=== PATIENT | female | born 1985 | race African-American/Black ===

== ENCOUNTER 2017-09-27 12:50 | Outpatient (CLI) | payer OTHER ==
--- NOTE | 2017-09-27 17:10 | ULT ---
OBSTETRICAL ULTRASOUND: Date: 09-27-17 History: 32-year-old female undergoing evaluation of anatomy. Technique: Multiplanar grayscale sonographic imaging of the gravid uterus obtained. FINDINGS: Cervical length is approximately 3.1 cm, within normal limits. The placenta is located posteriorly, d emonstrating no evidence of abruption or previa. A single intrauterine gestation is present demonstra ting a breech presentation. stomach, cord insertion, intracranial contents, nose and lips, four chamber heart view, urinary bladder, spine and region of the kidneys appears unremarkable. A four ve ssel cord is noted. biometry: BPD 4.9 cm 20 weeks 5 days HC 19.3 cm 21 weeks 4 days AC 17.9 cm 22 weeks 5 days FL 3.7 cm 21 weeks 5 days Average age based on ultrasound is 21 weeks 5 days. Estimated date of delivery is 02-02-18. Estimated weight is 481 grams, +/- 71 grams. IMPRESSION: Single intrauterine gestation as detailed above. POS: [facility]
== END 2017-09-27 12:51 | disposition home or self-care (01) ==
LOC: ULT 12:50
PROVIDERS: ATTEND Family Medicine
DX: O09.892 Supervision of other high risk pregnancies, second trimester (principal)
CPT/HCPCS: 76805

== ENCOUNTER 2017-10-05 11:23 | Day surgery (SDC) | payer OTHER ==
[2017-10-05 11:59] LABS: #Eosinphils 0.1 thou/uL (0.0-0.7); #Lymphocytes 2.5 thou/uL (1.20-3.40); #Monocytes 0.4 thou/uL (0.11-0.59); #Neutrophils 5.5 thou/uL (1.40-6.50); %Basophils 0.1 % (0.0-1.0); %Eosinophils 0.9 % (0.0-10.0); %Lymphocytes 29.1 % (21.0-51.0); %Monocytes 4.9 % (0.0-10.0); Hematocrit 30.6 % (36.0-47.0); Mean Platelet Volume 7.9 fL (7.4-10.4); Red Blood Cell (RBC) Count 3.95 mill/uL (4.20-5.40); White Blood Cell (WBC) Count 8.5 thou/uL (4.8-10.8)
[2017-10-05 12:01] VITALS: BP 146/91; TEMP 98.3
[2017-10-05 12:02] LABS: Bilirubin Negative (Negative); Blood, Urine Negative (Negative); Glucose, Urine (Dipstick) Negative (Negative); Ketone, Urine Negative (Negative); Nitrite Negative (Negative); Protein, Urine (Dipstick) Negative (Neg-Trace); Urobilinogen 0.2 mg/dL (0.2-1.0)
[2017-10-05 12:03] LABS: Bacteria/HPF Rare-Few HPF (None Seen); Hyaline Casts/LPF 0-3 HYALINE CAST LPF (0-3 Hyaline); RBC/HPF 0-3 HPF (0-3); WBC/HPF None Seen HPF (0-3)
[2017-10-05 12:15] LABS: Hemoglobin A1c 6.3 % (4.0-6.0)
[2017-10-05] MEDS ORDERED: Acetaminophen 500 MG TAB PO SCH (12:15)
[2017-10-05 12:17] LABS: Amphetamine Not Detected (NotDetected); Methadone Not Detected (NotDetected); Methamphetamine Not Detected (NotDetected)
[2017-10-05 12:23] LABS: ALT (SGPT) 29 U/L (8-55); AST (SGOT) 23 U/L (5-34); Alkaline Phosphatase 80 U/L (40-150); Anion Gap 12 mmol/L (10-20); BUN (Urea Nitrogen) 7 mg/dL (7.0-18.7); Bilirubin, Total 0.2 mg/dL (0.2-1.2); Calc. Creatinine Clearance 0 mL/min (70-130); Calcium 8.9 mg/dL (7.8-10.44); Carbon Dioxide 24 mmol/L (22-29); Chloride 104 mmol/L (98-107); Estimated GFR-MDRD Greater than 90; Globulin 3.4 g/dL (2.4-3.5)
--- NOTE | 2017-10-05 19:49 | PRG ---
DATE OF SERVICE: 10/05/2017 PRESENTING COMPLAINT: The patient transferred in from [facility] with elevated blood pressur es and headache. HISTORY OF PRESENT ILLNESS: Ms. Berman is a 32-year-old 2, para 1 at 23 weeks gestation, who sees Dr. Wisdom at [facility]. Antepartum record is not available. The patient relates th at she has diabetes and elevated blood pressure and takes nifedipine 30 p.o. daily as well as Lantus and Levemir. She was noted to have a blood pressure up to 186/76, pulse of 91, repeat blood pressure 164/129 at the retirement this morning. This seems to have been associated with some degree of anxiety an d conflict with cell mates. She denies blurred vision. AUTOMOTIVE PAINTER HELPER HISTORY: x1. Reports development of diabetes after her last and chronic hypert ension. PAST MEDICAL HISTORY: Diabetes and hypertension. PAST SURGICAL HISTORY: Denies. ALLERGIES: Denies. MEDICATIONS: Lantus, Levemir, and nifedipine. The patient reports she supposed to be on baby aspiri n a day, but has not been receiving this in the retirement. SOCIAL HISTORY: Denies. FAMILY HISTORY: Noncontributory. REVIEW OF SYSTEMS: Noncontributory. PHYSICAL EXAMINATION: GENERAL: Black female, in no acute distress. VITAL SIGNS: Initial blood pressure was 140s to 150s; however, with the patient relaxing and p.o. in take, blood pressures have been in the one teens to 120s/70s to 80s. Temperature is 98.6, respiratio ns 18, pulse was 82. HEENT: Within normal limits. LUNGS: Clear to auscultation bilaterally. HEART: Regular rhythm. BREASTS: Without masses bilaterally. ABDOMEN: Soft, nontender. Fundal height 22 cm. FHT is 130s to 140s. PELVIC: Vulva without lesions. Vaginal exam deferred. EXTREMITIES: Without clubbing, cyanosis, or edema. LABORATORY DATA: Revealed normal white count, hematocrit of 31%, normal platelet count. Comp met wa s within normal limits with a normal creatinine. Hemoglobin A1c of 6.3, glucose 109. Liver enzymes within normal limits. Urinalysis revealed negative protein. Protein to creatinine ratio was less th an 0.2 and urine drug screen revealed no abnormalities. IMPRESSION: Chronic hypertension, insulin-dependent diabetes in second trimester without evidence of secondary preeclampsia. PLAN: The patient will be discharged back to the retirement with a prescription for both Tylenol and baby aspirin once a day. The patient to keep scheduled followup with Dr. Wisdom at [facility].
== END 2017-10-05 14:51 ==
LOC: L&D/OP 11:23
PROVIDERS: ATTEND Obstetrics & Gynecology
DX: O10.012 Pre-existing essential hypertension complicating pregnancy, second trimester (principal); O24.112 Pre-existing type 2 diabetes mellitus, in pregnancy, second trimester; E11.9 Type 2 diabetes mellitus without complications; Z79.4 Long term (current) use of insulin; Z3A.23 23 weeks gestation of pregnancy
CPT/HCPCS: 80053; 80306; 81001; 82570; 83036; 84156; 85025; 99283

== ENCOUNTER 2017-10-24 12:54 | Inpatient (IN) | payer OTHER ==
[2017-10-24 13:15] LABS: Bilirubin Negative (Negative); Blood, Urine Negative (Negative); Clarity Clear (Clear); Glucose, Urine (Dipstick) Negative (Negative); Leukocyte Negative (Negative); Nitrite Negative (Negative); Protein, Urine (Dipstick) Negative (Neg-Trace); Specific Gravity, Urine 1.015 (1.005-1.030); Urobilinogen 0.2 mg/dL (0.2-1.0)
[2017-10-24 13:31] LABS: #Basophils 0.1 thou/uL (0.0-0.2); #Eosinphils 0.1 thou/uL (0.0-0.7); #Lymphocytes 2.2 thou/uL (1.20-3.40); #Monocytes 0.5 thou/uL (0.11-0.59); #Neutrophils 6.8 thou/uL (1.40-6.50); %Basophils 0.9 % (0.0-1.0); %Eosinophils 1.1 % (0.0-10.0); %Lymphocytes 22.6 % (21.0-51.0); %Monocytes 4.9 % (0.0-10.0); %Neutrophils 70.5 % (42.0-75.0); Hemoglobin 11.7 g/dL (12.0-16.0); Mean Corpuscular HGB CONC 34.8 g/dL (32.0-36.0); Mean Corpuscular Hemoglobin 26.9 pg (27.0-31.0); Mean Corpuscular Volume 77.3 fl (81.0-99.0); Mean Platelet Volume 7.6 fL (7.4-10.4); Platelet Count 226 thou/uL (130-400); RBC Distribution Width 11.4 % (11.5-14.5); Red Blood Cell (RBC) Count 4.34 mill/uL (4.20-5.40); White Blood Cell (WBC) Count 9.6 thou/uL (4.8-10.8)
[2017-10-24 13:40] LABS: Anion Gap 15 mmol/L (10-20); BUN (Urea Nitrogen) 7 mg/dL (7.0-18.7); Calc. Creatinine Clearance 0 mL/min (70-130); Calcium 9.7 mg/dL (7.8-10.44); Carbon Dioxide 22 mmol/L (22-29); Chloride 105 mmol/L (98-107); Estimated GFR-MDRD Greater than 90; Glucose 125 mg/dL (70-105); Sodium 138 mmol/L (136-145)
[2017-10-24 14:02] VITALS: BMI 31.4
[2017-10-24 15:07] LABS: ALT (SGPT) 35 U/L (8-55); AST (SGOT) 23 U/L (5-34); Albumin 3.5 g/dL (3.5-5.0); Alkaline Phosphatase 122 U/L (40-150); Bilirubin, Direct 0.1 mg/dL (0.1-0.3); Bilirubin, Total 0.3 mg/dL (0.2-1.2); Protein, Total 7.4 g/dL (6.0-8.3)
[2017-10-24] MEDS ORDERED: Acetaminophen 500 MG TAB PO SCH (15:15)
[2017-10-24] MEDS ORDERED: Dextrose 50% Abboject 50 ML SYRINGE SLOW IVP PRN (15:39)
[2017-10-24] MEDS ORDERED: Dextrose 5% in Water 1,000 ML IV PRN (15:39)
[2017-10-24] MEDS ORDERED: Labetalol 100 MG TAB PO SCH ×2 (15:45→21:00)
[2017-10-24] MEDS: Insulin Regular 300 UNITS/3 ML VIAL SC PRN (17:50)
[2017-10-24] MEDS ORDERED: Lidocaine 2% Viscous Solution 20 ML, Aluminum & Magnesium Hydroxide 30 ML, Donnatal Eli... SSW SCH ×3 (18:15)
[2017-10-24] MEDS ORDERED: NIFEdipine XL 30 MG TAB PO SCH (21:00)
[2017-10-24] MEDS ORDERED: NIFEdipine XL 60 MG TAB PO SCH (21:00)
[2017-10-24] MEDS: Acetaminophen 500 MG TAB PO PRN (21:41)
[2017-10-24] MEDS: Insulin Detemir 100 UNITS/ML 20 UNITS in Pre-Filled Syringe 1 EACH SC SCH (21:42)
[2017-10-24] MEDS: diphenhydrAMINE 50 MG/ML VIAL IVP SCH (22:24)
--- NOTE | 2017-10-24 22:57 | ULT ---
OB ULTRASOUND LIMITED: History: Chronic hypertension. Comparison: 09-27-17 Technique: Real-time grayscale and color evaluation of the gravid uterus was performed. FINDINGS: The cervix is closed and measures 4.3 cm in length. Single viable intrauterine with average ultrasound age of 24 weeks 5 days with estimated due date of 02-08-18. Estimated weight is 1 lbs . 11 oz, 10th percentile. The heart rate was documented at 137 beats/minute. Amniotic fluid index is 14.4 cm. The cervical, thoracic and lumbar spine, sacrum, urinary bladder, right and left kidney are all visua lized and appear normal. Placenta is posterior and the position is traverse. BPH 23 weeks 3 days 5.71 cm HC 24 weeks 5 days 22.64 cm AC 25 weeks 1 day 20.52 cm FL 25 weeks 2 days 4.62 cm IMPRESSION: Single viable intrauterine with ultrasound age of 24 weeks 5 days with estimated date of 02-08-18. Estimated weight is 1 lbs. 11 oz, 10th percentile. POS: [facility]
--- NOTE | 2017-10-25 00:36 | HP ---
The patient is a 32-year-old G2, P1 female with an intrauterine at 26 weeks who is seen at [facility] by Dr. Wisdom and has presented to labor and delivery with lower abdominal pain and headaches. The patient's past medical history is complicated, chronic hypertension and diabetes for which she is on medications. She reports that her lower abdominal is sharp and more present with activity and movement. She denies uterine contraction pain. Patient denies back pain, change in di scharge or bleeding, urinary urgency or frequency. She reports that she has been having intermittent headaches and she has been feeling more anxious and having nausea with some vomiting. She reports s he has vomited twice yesterday. The patient denies any fever, reports some baseline shortness of ibeth ath with activity during this and some chest pain that is intermittent that she described a s being all over her chest. The patient denies any rashes, denies diarrhea, constipation, denies hip problems, knee problems, denies vaginal bleeding, leakage of fluid, change in discharge, denies urin kendra urgency or frequency. PAST MEDICAL HISTORY: Gestational diabetes, chronic hypertension. PAST SURGICAL HISTORY: Negative. ALLERGIES: Negative. MEDICATIONS: The patient is on Levemir 20 units twice a day, on regular insulin, sliding scale 3 anna es a day with meals. She is on Procardia 30 mg twice a day, labetalol 100 mg twice a day, 2 baby asp irin a day, Tylenol 3 times a day as needed for pain, vitamins, acid, Zoloft 50 mg fatou ly. SOCIAL HISTORY: The patient reports prior to incarceration, she smoke half pack a day. She has been incarcerated since September at [facility]. REVIEW OF SYSTEMS: Per HPI. PHYSICAL EXAMINATION: VITAL SIGNS: Blood pressures have been in the 150s and 160s systolic, 70s to 100s diastolic, rate in the 80s, respiratory rate 18, temperature 98.0. GENERAL: She appears to be in no acute distress. She is alert and oriented, cooperative and pleasan t to interact with. HEENT: Head is normocephalic, atraumatic. LUNGS: Clear to auscultation bilaterally. HEART: Regular rate and rhythm. ABDOMEN: Soft. She does have some mild tenderness to palpation in the lower pelvis. EXTREMITIES: Nontender, nonedematous. DTRs are 2+. CERVICAL: Deferred. heart racing performed for elevated blood pressure and abdominal pain, baseline is in the 150s with moderate fpc variability, positive accelerations, no decelerations, no contractions seen o n the monitor tocometer. LABORATORY DATA: The patient's white count is 9.6, hemoglobin 11.7, hematocrit 33.5, platelets of 22 6,000. Sodium 138, potassium 4.0, chloride 105, bicarb 22, BUN 7, creatinine 0.066. Her glucose is 125, calcium 9.7, AST 23, ALT 35. Urine to creatinine ration is less than 2 at 0.148. ASSESSMENT AND PLAN: The patient is a 32-year-old female with intrauterine at 26 weeks wit h exacerbation of her chronic hypertension and diabetes. Fetus has reassuring tracing. I have incre ased the patient's blood pressure medications to labetalol 200 mg 3 times a day and I have kept her P rocardia 30 mg twice a day. I brought the patient in for observation and blood pressure monitoring w za we are trying to adjust her medications to document appropriate response. She will continue her home medications including her insulin with Accu-Cheks fasting and 2 hour post prandial. We will or adolph an ultrasound for evaluation.
[2017-10-25] MEDS: Acetaminophen 500 MG TAB PO PRN ×4 (03:43→23:44)
[2017-10-25] MEDS: Ondansetron HCl/PF 4 MG/2 ML Vial IVP PRN (03:47)
--- NOTE | 2017-10-25 08:02 | PRG ---
DATE OF SERVICE: 10/25/2017 HISTORY OF PRESENT ILLNESS: The patient is a 32-year-old female with an intrauterine at 26 weeks complicated by chronic hypertension and diabetes. Patient had an exacerbation of her hyperten arash and was admitted yesterday for medication management. The patient reported that she had a sever e headache that began about the same time labetalol was added to her regimen couple days ago. As a r esult, we discontinued her labetalol at arrival and have increased her nifedipine from 60 mg daily to 90 mg daily. Her blood pressures in the meantime have come down from the severe range to the normal to mild range. Most recent record blood pressure is 135/66. The patient this morning first she con tinues to have a headache. She describes it is pounding and believes it may be a migraine. Otherwis e, the patient has no other complaints. PHYSICAL EXAMINATION: VITAL SIGNS: Currently, blood pressure 135/66, respiratory rate 18, temperature 98.6, pulse of 87. GENERAL: She was sleeping sound when I arrived and was woken easily. She appears to be in no acute distress. She is alert and oriented, and cooperative and pleasant to interact with. EXTREMITIES: DTRs are nonexistent on her lower extremities. LABORATORY DATA: Blood sugar this morning is 122 at 6:00 a.m. ASSESSMENT AND PLAN: The patient is a 32-year-old female with an intrauterine at 26 weeks admitted for exacerbation of chronic hypertension, which seems to be under better control with 90 mg of Procardia a day, she had 60 mg at night and is having another 30 mg this morning. We have discont inued her labetalol hoping to resolve her headache. The patient is now describing her headache more consistent with migraine and we will attempt a regimen of Reglan and Benadryl to see if we can break the headache and will reevaluate afterwards. The patient has no DTRs and at this time, no signs that this headache is a result of preeclamptic picture, but we will keep a close eye on her.
[2017-10-25] MEDS ORDERED: Sodium Chloride 0.9% 20 ML ONE (09:10)
[2017-10-25] MEDS: diphenhydrAMINE 50 MG/ML VIAL IVP SCH ×2 (09:18→10:46)
[2017-10-25] MEDS: Metoclopramide HCl 10 MG/2 ML VIAL IVP SCH ×4 (09:23→11:43)
[2017-10-25] MEDS: Insulin Detemir 100 UNITS/ML 20 UNITS in Pre-Filled Syringe 1 EACH SC SCH ×2 (09:54→21:39)
[2017-10-25] MEDS: Prenatal Vitamin 1 TAB PO SCH (10:01)
[2017-10-25] MEDS: NIFEdipine XL 30 MG TAB PO SCH (10:03)
[2017-10-25] MEDS ORDERED: Sodium Chloride 0.9% 10 ML ONE ×2 (11:09→12:00)
[2017-10-25] MEDS: Insulin Regular 300 UNITS/3 ML VIAL SC PRN (11:37)
--- NOTE | 2017-10-25 11:57 | PDOC.EVN ---
Event Note - Event Note Event Note: Chart reviewed. here for CHTN BP obs, has DM on meds HX MARIE... S. Still with c/o MARIE, but no nuero findings O. BPs 150s/90s Meds: Procardia 30mg po given this AM with 60mgXL this PM hemoglobin A1c pending Assessment: CHTN and C;lass B DM on meds, here for BP control and possible migraine exacerbation Plan: 1. Continue Procardia XL 90 mg po oral dose per day 2. Gulcose checks 3. Expectant management
[2017-10-25] MEDS ORDERED: NIFEdipine XL 60 MG TAB PO SCH (22:00)
[2017-10-26] MEDS: Acetaminophen 500 MG TAB PO PRN (05:41)
--- NOTE | 2017-10-26 06:44 | PDOC.EVN ---
Event Note - Event Note Event Note: DISCHARGE NOTE Admmit Date 10/24/17 Discharge date 10/26/17 Diagnoses: 1. CHTN 2. Pre-existing DM (Class B) Procedures: 1. NST 2. BP medication adjustment This patient, currently incarcerated, was admitted on 10/24/17 with LAP, NOS. HX of CHTN on medication and DM on insulin. Medication for BP was adjusted in- house with final regimine being Procardia 30mg po QAM and Procardia 60mg XL QAM. Her [facility] labs were normal. Hemoglobin A1c was 6.0. She also experienced a headache though to be an atypical migraine. This was treated with reglan and benadryl. She was released back to custody on 10/26/17 with blood pressures better controlled (140-150s/80-90s). NST seen on 10/26/17 was reactive for a 26 week . I evaluated the patient at bedside the morning of release, eliud in room with her. Released to custody on procardia and robitussin prn.
[2017-10-26] MEDS: NIFEdipine XL 30 MG TAB PO SCH (07:40)
[2017-10-26] MEDS: Prenatal Vitamin 1 TAB PO SCH (07:41)
[2017-10-26] MEDS ORDERED: Ondansetron ODT 4 MG TAB PO PRN (07:59)
--- NOTE | 2017-10-26 08:15 | PDOC.EVN ---
Event Note - Event Note Event Note: As patient with continued MARIE, I have ordered Brain MRI to assess for any possible PRES changes vs other. Dr Lucero briefed. [facility] for [facility].
[2017-10-26 08:32] LABS: ALT (SGPT) 30 U/L (8-55); AST (SGOT) 19 U/L (5-34); Albumin 3.5 g/dL (3.5-5.0); Alkaline Phosphatase 130 U/L (40-150); Anion Gap 14 mmol/L (10-20); BUN (Urea Nitrogen) 8 mg/dL (7.0-18.7); Bilirubin, Total 0.2 mg/dL (0.2-1.2); Calc. Creatinine Clearance 166 mL/min (70-130); Calcium 9.1 mg/dL (7.8-10.44); Carbon Dioxide 22 mmol/L (22-29); Chloride 105 mmol/L (98-107); Estimated GFR-MDRD Greater than 90; Globulin 4.1 g/dL (2.4-3.5); Glucose 115 mg/dL (70-105); Potassium 3.6 mmol/L (3.5-5.1); Protein, Total 7.6 g/dL (6.0-8.3); Sodium 137 mmol/L (136-145)
[2017-10-26] MEDS: Ondansetron HCl/PF 4 MG/2 ML Vial IVP PRN ×2 (08:55→16:41)
[2017-10-26] MEDS ORDERED: Promethazine HCl 25 MG/ML VIAL IM SCH (09:00)
[2017-10-26] MEDS ORDERED: hydrALAZINE 20 MG/ML VIAL SLOW IVP SCH (09:00)
[2017-10-26] MEDS ORDERED: Lactated Ringer's 500 ML IV SCH (09:15)
[2017-10-26] MEDS ORDERED: Magnesium 2 GM/NS 0.9% 100 ML 2 GM in Premix Bag 1 BAG IVPB SCH (09:30)
[2017-10-26] MEDS: Betamet Acet/Betamet Na Ph 30 MG/5 ML VIAL IM SCH (09:37)
[2017-10-26] MEDS ORDERED: HYDROcodone/Acetaminophen 5/325 mg Tablet PO SCH ×2 (11:00→21:15)
[2017-10-26] MEDS ORDERED: Morphine 4 MG/ML Carpuject SLOW IVP SCH ×2 (11:00→17:30)
[2017-10-26] MEDS: Guaifenesin DM 100-10/5 ML UDCUP PO PRN (11:17)
[2017-10-26] MEDS: Insulin Detemir 100 UNITS/ML 20 UNITS in Pre-Filled Syringe 1 EACH SC SCH ×2 (12:38→21:28)
[2017-10-26] MEDS ORDERED: NIFEdipine XL 30 MG TAB PO SCH (13:15)
--- NOTE | 2017-10-26 13:17 | MRI ---
MRI BRAIN NONCONTRAST: Clinical history: Unrelenting headache, hypertension. 26-week gestation in a 32-year-old fe male. FINDINGS: The ventricular system is normal in size. There is no evidence of acute infarction or intracranial ma ss effect. No intracranial hemorrhagic susceptibility. The central skull base flow voids are patent. There is mild mucosal thickening of the paranasal sinuses. IMPRESSION: No acute intracranial abnormalities. MRV WITH 3D VOLUME RENDERING NONCONTRAST: Clinical history: Unrelenting headaches, hypertension, 32-year-old female with 26-week gestation. FINDINGS: MRV examination reveals no evidence of filling defect to indicate dural venous thrombosis. There is a ttenuation of the anterior aspect of the superior sagittal sinus. There is mild irregularity at the l ateral aspect of the right transverse sinus and right sigmoid sinus. This most likely related to flow related artifact. The internal cerebral veins, and straight sinus are not reliably characterized due to diminutive caliber, although are grossly unremarkable within limitations. IMPRESSION: No definite acute dural vein sinus thrombosis, with additional details discussed above. POS: [facility]
[2017-10-26] MEDS: Insulin Regular 300 UNITS/3 ML VIAL SC PRN ×2 (14:47→21:29)
[2017-10-26] MEDS ORDERED: SUMAtriptan Succinate 25 MG TAB PO SCH (15:00)
[2017-10-26] MEDS ORDERED: Metoclopramide HCl 10 MG/2 ML VIAL IVP PRN ×2 (15:12→21:30)
[2017-10-26] MEDS ORDERED: Dihydroergotamine Mesylate 1 MG/ML AMP SLOW IVP SCH ×2 (15:15→21:30)
[2017-10-26] MEDS ORDERED: hydrALAZINE 20 MG/ML VIAL SLOW IVP PRN (16:47)
[2017-10-26] MEDS ORDERED: Sodium Chloride 0.9% 10 ML ONE (17:05)
[2017-10-26] MEDS: NIFEdipine XL 60 MG TAB PO SCH (20:12)
[2017-10-26] MEDS: hydrALAZINE 25 MG TAB PO SCH (20:12)
[2017-10-26] MEDS: diphenhydrAMINE 50 MG/ML VIAL IVP SCH (22:26)
[2017-10-27] MEDS: Insulin Regular 300 UNITS/3 ML VIAL SC PRN ×4 (05:54→19:45)
[2017-10-27] MEDS: Acetaminophen 500 MG TAB PO PRN ×2 (08:15→15:30)
[2017-10-27] MEDS: Prenatal Vitamin 1 TAB PO SCH (09:41)
[2017-10-27] MEDS: Insulin Detemir 100 UNITS/ML 20 UNITS in Pre-Filled Syringe 1 EACH SC SCH ×2 (09:42→20:42)
[2017-10-27] MEDS: hydrALAZINE 25 MG TAB PO SCH ×3 (09:42→20:45)
[2017-10-27 09:52] LABS: FFN Internal QC Analyzer PASS (PASS); FFN Internal QC Cassette PASS (PASS)
[2017-10-27 09:54] LABS: Fetal Fibronectin Negative (Negative)
[2017-10-27] MEDS: Betamet Acet/Betamet Na Ph 30 MG/5 ML VIAL IM SCH (10:54)
[2017-10-27] MEDS: Guaifenesin DM 100-10/5 ML UDCUP PO PRN ×2 (10:54→18:29)
[2017-10-27 12:28] LABS: Bilirubin Negative (Negative); Blood, Urine Negative (Negative); Clarity CLEAR (Clear); Glucose, Urine (Dipstick) 500 mg/dL (Negative); Leukocyte Negative (Negative); Nitrite Negative (Negative); Protein, Urine (Dipstick) Trace mg/dL (Neg-Trace); Specific Gravity, Urine 1.029 (1.002-1.036); pH, Urine 6.5 (5.0-9.0)
[2017-10-27 12:32] LABS: Bacteria/HPF None Seen HPF (None Seen); Hyaline Casts/LPF 0-3 HYALINE CAST LPF (0-3 Hyaline); Pathc Cast-AUWi Flag 0.13 (0-2.49); RBC/HPF 0-3 HPF (0-3); Squamous Epithelial 0-3 HPF (0-3); WBC/HPF 0-3 HPF (0-3)
[2017-10-27] MEDS ORDERED: Metoclopramide HCl 10 MG/2 ML VIAL IVP SCH (13:30)
[2017-10-27] MEDS: diphenhydrAMINE 50 MG/ML VIAL IVP SCH ×2 (13:42→15:58)
[2017-10-27] MEDS ORDERED: Metoclopramide HCl 10 MG/2 ML VIAL IVP PRN (14:45)
--- NOTE | 2017-10-27 19:08 | PDOC.EVN ---
Event Note - Event Note Event Note: Pt seen at 1500 S: Pt c/o recurrence of MARIE with light sens. Reglan/Benadryl ordered. She also c/ o pain that radiated from epigastrum to midline pelvis and radiates around to low back. O: Vital Signs (12 hours) Temp Pulse Resp BP BP 10/27/17 16:00 98.7 F 84 20 135/90 10/27/17 15:24 84 135/90 10/27/17 11:33 98.8 F 94 20 125/61 10/27/17 09:42 87 140/93 H 10/27/17 08:05 98.3 F 87 20 140/93 H 10/27/17 08:00 98.3 F 87 20 Weight Weight 183 lb Laboratory Results - last 24 hr 10/26/17 10/27/17 10/27/17 20:07 05:49 08:55 POC Glucose 159 H 195 H Urine Color Urine Clarity Urine pH Ur Specific [place] Urine Protein Urine Glucose (UA) Urine Ketones Urine Blood Urine Nitrite Urine Bilirubin Urine Urobilinogen Ur Leukocyte Esterase Urine RBC Urine WBC Ur Squamous Epith Cells Urine Bacteria Hyaline Casts Fibronectin Negative 10/27/17 10/27/17 10/27/17 11:28 12:10 15:19 POC Glucose 225 H 192 H Urine Color YELLOW Urine Clarity CLEAR Urine pH 6.5 Ur Specific [place] 1.029 Urine Protein Trace Urine Glucose (UA) 500 H Urine Ketones Negative Urine Blood Negative Urine Nitrite Negative Urine Bilirubin Negative Urine Urobilinogen 1.0 Ur Leukocyte Esterase Negative Urine RBC 0-3 Urine WBC 0-3 Ur Squamous Epith Cells 0-3 Urine Bacteria None Seen Hyaline Casts 0-3 HYALINE CAST Fibronectin Gen. dark room, face covered with blanket Resp. unlabored Abd. gravid, NT, no CVA tenderness. Indicated area of pain SI joint A/P: 1. 26.3 week viable IUP * 10%ile * PNC with Dr. Wisdom, Top [place] 2. CHTN. * BPs now mild range to high normal on 2 BP meds after adjustment. * Unsure if pt had baseline 24 hour urine so ordered. Spot AK:Cr ration 0.14 * Negative MRI of head but pt cont to co of headaches. Neuro consult still pending 3. DM II. HgA1c is 6. Recent hyperglycemia likely secondary to betamethasone 4. Incarceration 5. Pt c/o cramping pain. Cervix L/T/C per RN and ffn negative. U/A negative
[2017-10-27] MEDS: NIFEdipine XL 60 MG TAB PO SCH (20:45)
[2017-10-27 20:46] VITALS: BP 141/69
[2017-10-27 21:14] VITALS: TEMP 98.9
--- NOTE | 2017-10-27 22:59 | CON ---
DATE OF CONSULTATION: 10/27/2017 REASON FOR CONSULTATION: Intractable headache. REFERRING PROVIDER: Prosper Lucero M.D. HISTORY OF PRESENT ILLNESS: Ms. Berman is a pleasant 32-year-old, 26 weeks , has been con sidered for evaluation of intractable headache. She reports that approximately 1 week ago, she was s tarted having headaches that were bifrontal in origin and radiating cranially. These are throbbing i n quality, moderate to severe intensity. She had blurry vision, photophobia, and phonophobia with he adaches. As these headaches were not improving, she was brought to the [facility] for further evaluation. She reports that her headaches are somewhat getting better after receiving Regl an. She denies chest pain, palpitation, numbness, tingling or weakness. PAST MEDICAL HISTORY: Significant for chronic hypertension, gestational diabetes. PAST SURGICAL HISTORY: None significant. SOCIAL HISTORY: She smokes half pack per day. She has been incarcerated since September. CURRENT MEDICATIONS: Please review DEC. ALLERGIES: No known drug allergies. REVIEW OF SYSTEMS: As mentioned above in HPI, otherwise negative. PHYSICAL EXAMINATION: VITAL SIGNS: Blood pressure of 141/69, pulse of 80, temperature of 98.9, respirations of 18, O2 sats of 100% on room air. GENERAL: Well-developed, well-nourished -[place]banian female, in no apparent distress. RESPIRATORY: Clear to auscultation bilaterally. CARDIOVASCULAR: Regular rate and rhythm. NEUROLOGICAL: Mental status: The patient is awake, alert, oriented x3. Speech and language: Fluen t speech. Cranial nerves: Pupils are 3 mm and reactive. Visual wyman are intact. External muscle s are intact. No nystagmus is noted. Face is symmetric. Tongue and uvula are midline. Motor exam showed normal tone and bulk with 5/5 strength in both upper and lower extremities. Babinski: Planta r responses flexion bilaterally. Coordination intact to [id number], finger tapping bilateral ly. Sensory: Sensation is intact and symmetric. LABORATORY DATA: Reviewed, which included CBC, CMP, urinalysis, which is significant for hemoglobin of 11.7, hematocrit of 33.5, otherwise unremarkable. IMAGING STUDIES: MRI brain without contrast was reviewed, which showed no acute intracranial abnorma lity. IMPRESSION: Intractable migraine. ASSESSMENT AND PLAN: Ms. Berman is a pleasant 32-year-old, 26 weeks female who presented with a severe intractable headache. Her headache is likely migraine in origin. At this time, due t o her , most of the medications being given for acute and prevented therapies for migraines are contraindicated. I agree with giving her Reglan as needed for breakthrough headaches. She may a lso receive Flexeril 5 mg p.r.n. for breakthrough headaches. There is no further neurological workup needed from my standpoint, she is okay to be discharged to home. Thank you for your consultation.
== END 2017-10-27 21:00 | DRG 781 ==
LOC: SCSER 12:54 → L&D/OP 13:46 → EEVIPCON 15:31 → OBSVTOIN 15:31 → 3SW 15:31
PROVIDERS: ADMIT Obstetrics & Gynecology; ATTEND Obstetrics & Gynecology
DX: O16.2 Unspecified maternal hypertension, second trimester (principal); O24.414 Gestational diabetes mellitus in pregnancy, insulin controlled; F17.210 Nicotine dependence, cigarettes, uncomplicated; Z3A.26 26 weeks gestation of pregnancy; O99.332 Smoking (tobacco) complicating pregnancy, second trimester; G43.919 Migraine, unspecified, intractable, without status migrainosus
CPT/HCPCS: 36415; 36416; 70551; 76815; 80048; 80053; 80076; 81001; 81003; 82570; 82731; 83036; 84156; 85025; 99285; A4216; J0360; J0702; J1110; J1200; J1815; J2270; J2405; J2765; J3475; Q0162

== ENCOUNTER 2018-05-03 10:57 | Observation (INO) | payer OTHER, SELFPAY ==
[2018-05-03 12:01] LABS: #Eosinphils 0.1 thou/uL (0.0-0.7); #Lymphocytes 2.7 thou/uL (1.20-3.40); #Monocytes 0.3 thou/uL (0.11-0.59); #Neutrophils 2.6 thou/uL (1.40-6.50); %Basophils 0.8 % (0.0-1.0); %Eosinophils 1.6 % (0.0-10.0); %Monocytes 4.8 % (0.0-10.0); %Neutrophils 45.7 % (42.0-75.0); Hemoglobin 11.8 g/dL (12.0-16.0); Mean Corpuscular HGB CONC 34.8 g/dL (32.0-36.0); Mean Corpuscular Hemoglobin 25.4 pg (27.0-31.0); Mean Corpuscular Volume 73.1 fL (78.0-98.0); Mean Platelet Volume 8.4 fL (7.4-10.4); Platelet Count 203 thou/uL (130-400); RBC Distribution Width 12.8 % (11.5-14.5); Red Blood Cell (RBC) Count 4.65 mill/uL (4.20-5.40); White Blood Cell (WBC) Count 5.8 thou/uL (4.8-10.8)
[2018-05-03 12:19] LABS: ALT (SGPT) 11 U/L (8-55); AST (SGOT) 12 U/L (5-34); Albumin 3.8 g/dL (3.5-5.0); Alkaline Phosphatase 63 U/L (40-150); Anion Gap 11 mmol/L (10-20); BUN (Urea Nitrogen) 8 mg/dL (7.0-18.7); Bilirubin, Total 0.4 mg/dL (0.2-1.2); CK (CPK) 83 U/L (29-168); CKMB 1.3 ng/mL (0-6.6); Calc. Creatinine Clearance 0 mL/min (70-130); Calcium 8.7 mg/dL (7.8-10.44); Carbon Dioxide 25 mmol/L (22-29); Chloride 103 mmol/L (98-107); Estimated GFR-MDRD Greater than 90; Globulin 3.2 g/dL (2.4-3.5); Glucose 288 mg/dL (70-105); Lipase 31 U/L (8-78); Potassium 3.4 mmol/L (3.5-5.1); Sodium 136 mmol/L (136-145); Troponin I 0.082 ng/mL (< 0.028)
[2018-05-03] MEDS ORDERED: Nitroglycerin 2% Ointment 1 INCH/1 GM Packet ONE (12:34)
[2018-05-03 12:39] LABS: MDiff Complete? YES; Microcytosis SLIGHT = 6-15 cells (100X) (0-5/hpf); PLT Morphology Comment Appears Adequate
[2018-05-03 12:40] LABS: BHCG - Serum Negative (NEGATIVE); Pregs Control Background? CLEAR/WHITE (CLR/WHITE); Pregs Control Bar Appear? YES (CONTROL BAR)
--- NOTE | 2018-05-03 13:33 | RAD ---
PORTABLE AP CHEST: Date: 05/03/18 HISTORY: Chest pain and hypertension. Pain exacerbated by breathing. FINDINGS: Cardiac silhouette and pulmonary vasculature are within normal limits. Lungs are clear. Osseous struc tures are intact. IMPRESSION: No acute cardiopulmonary process. POS: [facility]
[2018-05-03] MEDS ORDERED: Enoxaparin Sodium 80 MG/0.8 ML SYRINGE ONE (13:57)
[2018-05-03] MEDS ORDERED: Insulin Regular 300 UNITS/3 ML VIAL SC PRN (14:07)
[2018-05-03] MEDS ORDERED: Mag-Al 1200 mg/1200 mg/30 ML UDCUP PO PRN (14:07)
[2018-05-03] MEDS ORDERED: Calcium Carbonate 500 MG ChewTAB PO PRN (14:07)
[2018-05-03] MEDS ORDERED: Dextrose 5% in Water 1,000 ML IV PRN (14:07)
[2018-05-03] MEDS ORDERED: Senokot 8.6 MG TAB PO PRN (14:07)
[2018-05-03] MEDS ORDERED: Dextrose 50% Abboject 50 ML SYRINGE SLOW IVP PRN (14:07)
[2018-05-03] MEDS ORDERED: hydrALAZINE 20 MG/ML VIAL SLOW IVP PRN (14:15)
[2018-05-03] MEDS ORDERED: cloNIDine 0.1 MG TAB PO PRN (14:15)
[2018-05-03] MEDS ORDERED: Potassium Chloride 20 MEQ TAB PO SCH (14:15)
[2018-05-03 14:34] VITALS: BMI 29.9
[2018-05-03 14:50] LABS: Hemoglobin A1c 11.8 % (4.0-6.0)
--- NOTE | 2018-05-03 15:05 | HP ---
DATE OF ADMISSION: 05/03/2018 PRIMARY CARE PHYSICIAN: None. CHIEF COMPLAINT: Chest discomfort. HISTORY OF PRESENT ILLNESS: The patient is a 32-year-old female with diabetes mellitus type 2 diagnosed 6 years ago, hypertension, and family history of premature coronary artery disease, who presented to the emergency room with chest discomfort that has been ongoing for a month or so. The chest discomfort got worse in the last 24 hours for which she presented to the emergency room. It was burning in nature, substernal, worse on sitting up and improved on lying down. It was moderate in intensity. She was nauseous and threw up one time. She tried taking Prilosec with some improvement. She denies recent immobilization, travel, palpitations, lightheadedness, syncope. The pain somewhat improved with nitroglycerin temporarily. She currently does not have any primary care physician. She has blood pressure medicine that was prescribed by her party bus driver at [facility] when she was discharged. In the emergency room, initial vital signs showed temperature 98.3, respiration of 13, pulse rate of 76 with a blood pressure of 160/20 before sublingual nitroglycerin. She was saturating 98% on room air. EKG showed sinus rhythm with left ventricular hypertrophy and nonspecific ST-T wave changes. She denies significant chest discomfort at this time. Chest x-ray was negative for infiltrate or edema. PAST MEDICAL HISTORY: 1. Diabetes mellitus type 2 diagnosed 6 years ago. 2. Hypertension. 3. Hyperlipidemia. 4. Anxiety, depression. PAST SURGICAL HISTORY: Recent childbirth. ALLERGIES: The patient is allergic to AMOXICILLIN. CURRENT HOME MEDICATIONS: The patient is unable to provide details of her medication. She states that she takes nifedipine extended release, Levemir 18 units at night and Zoloft. She is unable to provide the dosages. SOCIAL HISTORY: The patient currently smokes up to half pack a day. No alcohol or drug use. FAMILY HISTORY: Brother with [place] at age of 32. REVIEW OF SYSTEMS: The following complete review of systems was negative, unless otherwise mentioned in the HPI or below: Constitutional: Weight loss or gain, ability to conduct usual activities. Skin: Rash, itching. Eyes: Double vision, pain. ENT/Mouth: Nose bleeding, neck stiffness, pain, tenderness. Cardiovascular: Palpitations, dyspnea on exertion, orthopnea. Respiratory: Shortness of breath , wheezing, cough, hemoptysis, fever or night sweats. Gastrointestinal: Poor appetite, abdominal pain, heartburn, nausea, vomiting, constipation, or diarrhea. Genitourinary: Urgency, frequency , dysuria, nocturia. Musculoskeletal: Pain, swelling. Neurologic/Psychiatric : Anxiety, depression. Allergy/Immunologic: Skin rash, bleeding tendency. PHYSICAL EXAMINATION: VITAL SIGNS: As discussed above. GENERAL: A 32-year-old female in no apparent distress, appears comfortable. HEENT: Head, atraumatic, normocephalic. Sclerae are anicteric. Moist mucous membranes. No oral lesion. NECK: Supple, no JVD appreciated. No carotid bruit. LUNGS: Clear to auscultation bilaterally, no wheezing, rales or rhonchi. HEART: S1, S2 present. Regular rate and rhythm. No murmur, rubs, or gallops appreciated. No heaves or pulsation. ABDOMEN: Soft, nontender, bowel sounds present. EXTREMITIES: No edema or calf tenderness. NEUROLOGIC: Grossly nonfocal, moves all four extremities. PSYCHIATRY: Alert, awake, oriented x3. SKIN: Warm and dry. LYMPH NODES: No palpable lymph nodes in the neck. PERIPHERAL VASCULAR: Radial pulses palpable bilaterally. MUSCULOSKELETAL: No joint swelling or tenderness. LABORATORY AND X-RAY FINDINGS: 1. CBC showed WBC of 5.8 with hemoglobin 11.8, hematocrit 33.9, platelet of 203. 2. Troponin was 0.082. CK-MB was 1.3. testing negative. BUN of 8, creatinine 0.8, sodium 136, potassium 3.4. 3. Chest x-ray and EKG by my review as discussed above. IMPRESSION: 1. Chest discomfort, rule out acute coronary syndrome. 2. Hypertensive urgency. 3. Elevated troponin in the indeterminate range, probably secondary to uncontrolled hypertension. 4. Hypokalemia. 5. Diabetes mellitus type 2. 6. History of hypertension. 7. Anxiety, depression without any suicidal ideation. 8. AMOXICILLIN allergy. 9. Hypochromic microcytic anemia. PLAN: The patient will be monitored as a 23-hour observation. We will keep on n.p.o. Continue aspirin. We will get serial troponins. If her troponins stay in the indeterminate range, we will consider a stress test. Otherwise, we will consult Cardiology. We will resume her home medications once confirmed. We will check A1c. We will replace potassium. We will start her on insulin sliding scale. Plan of care was discussed with the patient in detail. She stated understanding. ZARA
[2018-05-03 15:10] LABS: Troponin I 0.137 ng/mL (< 0.028)
--- NOTE | 2018-05-03 16:46 | CON ---
DATE OF CONSULTATION: 05/03/2018 CARDIOLOGY CONSULTATION REASON FOR CONSULTATION: Chest pain. HISTORY OF PRESENT ILLNESS: Mrs. Berman is a pleasant 32-year-old -[place]ian female who com es to the hospital for chest pain. She has been having on and off chest pain for the last 2 months. She says they last about 5-10 minutes at a time and then they go away. She did not think much of th is. She decided to come into the hospital this time around as she noted that she was starting to hav e worsening symptoms with increased duration of pain and intensity of the pain, so she decided to com e in for evaluation. In the ER, she was found to have blood pressure of 160/120. Sublingual nitro w as given. She tells me right now at this moment she had a nitro paste placed and her pain is complet di gone. She tells me she feels much better. She has not had any pain since the nitro paste was pl aced for several hours back. Currently, no other issues. PAST MEDICAL HISTORY: 1. Type 2 diabetes for the last 6 years. 2. Hypertension. 3. Hyperlipidemia. 4. Anxiety and depression. PAST SURGICAL HISTORY: Childbirth recently. ALLERGIES: AMOXICILLIN. OUTPATIENT MEDICATIONS: 1. Insulin. 2. Nifedipine 90 mg a day. 3. Tylenol extra strength p.r.n. 4. Levemir insulin. 5. Zoloft 50 mg a day. SOCIAL HISTORY: Smokes half a pack a day. No alcohol or drug use. FAMILY HISTORY: Brother with CA at age 32. However, she tells me that he did not require stents or bypass or anything. It was just a mild heart attack she states. She cannot give me much more detail s about this. REVIEW OF SYSTEMS: A 12-point review of systems was done and it is all negative unless stated in the history of present illness. PHYSICAL EXAMINATION: VITAL SIGNS: Temperature 98.1, pulse 69, respiration rate 16, satting 96% on room air, blood pressur e 140/100. GENERAL: Awake, alert, oriented x3, in no distress. HEENT: Normocephalic, atraumatic. NECK: Supple. LUNGS: Clear. CARDIOVASCULAR: S1, S2. No S3 or S4. No murmurs, no rubs. ABDOMEN: Soft, positive bowel sounds. EXTREMITIES: No edema. SKIN: Warm and dry. LABORATORY WORK: Reviewed. CBC with a hemoglobin of 11.8, hematocrit of 33.9, platelet count is nor mal to 203,000, white count of 5.8. Chemistries unremarkable except for a potassium of 3.4. Hemoglo bin A1c was 11.8. Troponin I was 0.08, second was 0.13. Albumin of 3.8. test was negativ e. Chest x-ray showed no acute cardiopulmonary process. EKG was reviewed. ASSESSMENT AND PLAN: 1. Chest pain: Certainly concerning for unstable angina. We will plan on doing further risk strati fication with a heart catheterization. I spoke with her at length about the risks and benefits of th e procedures including, but not limited to stroke, myocardial infarction, , bleeding and need fo r blood transfusion, limb loss, organ loss. The patient understands, verbalized understanding of thi s, she agrees to proceed. Further recommendations per results of coronary angiogram. We will plan o n doing this tomorrow morning. If she starts to become having more pain or her troponins increase si gnificantly, we will plan on taking her this evening. 2. Hypertension: She may be having just a hypertensive emergency. We will continue nitro paste for now. Thank you for letting us to participate in the care of your patient. We will follow.
[2018-05-03] MEDS: Insulin Regular 300 UNITS/3 ML VIAL SC PRN (17:00)
[2018-05-03] MEDS: Acetaminophen 325 MG TAB PO PRN (17:00)
[2018-05-03 17:55] LABS: Troponin I 0.158 ng/mL (< 0.028)
[2018-05-03] MEDS ORDERED: Nitroglycerin 2% Ointment 1 INCH/1 GM Packet TOP SCH (19:00)
[2018-05-03] MEDS ORDERED: NIFEdipine XL 90 MG TAB PO SCH (21:00)
[2018-05-03] MEDS ORDERED: Docusate 100 MG CAP PO SCH (21:00)
[2018-05-03] MEDS ORDERED: Atorvastatin Calcium 10 MG TAB PO SCH (21:00)
[2018-05-03] MEDS ORDERED: Insulin Glargine 10 UNITS in Pre-Filled Syringe 1 EACH SC SCH (21:00)
[2018-05-03] MEDS: Famotidine 20 MG TAB PO SCH (21:34)
[2018-05-03] MEDS: Nitroglycerin 2% Ointment 1 INCH/1 GM Packet TOP SCH (23:59)
[2018-05-04] MEDS: Acetaminophen 325 MG TAB PO PRN ×2 (04:10→07:56)
[2018-05-04 05:07] LABS: Anion Gap 12 mmol/L (10-20); BUN (Urea Nitrogen) 7 mg/dL (7.0-18.7); Calc. Creatinine Clearance 141 mL/min (70-130); Carbon Dioxide 26 mmol/L (22-29); Chloride 102 mmol/L (98-107); Estimated GFR-MDRD Greater than 90; Glucose 195 mg/dL (70-105); Potassium 3.2 mmol/L (3.5-5.1); Sodium 137 mmol/L (136-145)
[2018-05-04] MEDS: Nitroglycerin 2% Ointment 1 INCH/1 GM Packet TOP SCH (06:30)
[2018-05-04] MEDS: Famotidine 20 MG TAB PO SCH (07:55)
[2018-05-04] MEDS ORDERED: Lidocaine 1% (PF) 30 ML VIAL ONE (08:10)
[2018-05-04] MEDS ORDERED: Fentanyl 100 MCG/2 ML VIAL ONE (08:46)
[2018-05-04] MEDS ORDERED: Midazolam HCl 2 mg/2 ml Vial ONE (08:46)
[2018-05-04] MEDS ORDERED: Aspirin 325 mg Enteric Coated Tablet PO SCH (09:00)
[2018-05-04] MEDS ORDERED: INSULIN DETEMIR SQ SCH (09:00)
[2018-05-04] MEDS ORDERED: traMADol HCl 50 MG TAB PO PRN (09:02)
[2018-05-04] MEDS ORDERED: Acetaminophen/Codeine 30-300mg Tablet PO PRN (09:02)
[2018-05-04] MEDS ORDERED: Sodium Chloride 0.9% 200 ML IV PRN (09:15)
[2018-05-04] MEDS ORDERED: Sodium Chloride 0.9% 1,000 ML IV SCH (09:15)
[2018-05-04] MEDS ORDERED: Iopamidol 370 76% 100 ML VIAL ONE (10:08)
[2018-05-04] MEDS ORDERED: Potassium Chloride 20 MEQ TAB PO SCH (11:00)
[2018-05-04] MEDS: Insulin Regular 300 UNITS/3 ML VIAL SC PRN (11:32)
[2018-05-04 12:35] VITALS: BP 123/85; TEMP 98.2
--- NOTE | 2018-05-04 23:13 | DIS ---
DATE OF ADMISSION: 05/03/2018 DATE OF DISCHARGE: 05/04/2018 CONDITION AT THE TIME OF DISCHARGE: Stable and improved. DISCHARGE DIAGNOSES: 1. Chest pain likely unstable angina. 2. Ongoing tobacco abuse. 3. Hypertension. 4. Dyslipidemia. 5. Diabetes mellitus. 6. Anxiety and depression. DISCHARGE MEDICATIONS: As follows, new medication aspirin 325 mg daily and pravastatin 20 mg daily. Resume home medications as follows: Zoloft 50 mg daily, nifedipine XL 90 mg daily, insulin NovoLog b.i.d. at home dosages and Levemir 18 units subcutaneous b.i.d. CONSULTATION IN HOUSE: Cardiology, Dr. Chang. PROCEDURES DONE IN THE HOSPITAL: Cardiac catheterization. Final report is pending at this time, but I was told that she has minimal coronary artery disease of 20% and 40% but the final report is pendi ng at this time. The patient has been cleared for discharge by Cardiology as discussed with Dr. Horton to prior to discharge. Primary care physician, yet to establish. The patient wants to go back to Dr. Pantoja and was giv en referral. HISTORY OF PRESENT ILLNESS: Ms. Berman is a very pleasant 32-year-old female with past medical hi story of diabetes, hypertension, dyslipidemia who presented to the emergency room with complaints of chest discomfort. Her blood pressure was elevated to 160 systolic. Upon presentation, otherwise she was hemodynamically stable. EKG shows sinus rhythm with left ventricular hypertrophy and nonspecifi c ST and T-wave changes. Chest x-ray was cleared for any edema or infiltrate. Cardiac enzymes are b orderline elevated. Initial troponin 0.082 with a CK-MB of 1.3. test negative. She was a dmitted for further evaluation and rule out acute coronary syndrome. Cardiology was consulted paul figueroa of indeterminate range troponin. Please see admission history and physical for further details. HOSPITAL COURSE: Patient was seen by Dr. Chang from cardiology. Cardiac enzymes were trended and h er highest troponin was 0.158. She underwent a cardiac catheterization after risks and benefits were discussed by Dr. Chang. Formal report is pending at this time with the patient told me that she madrigal d 20% and 40% lesions, one blood vessels versus two and I discussed this with Dr. Chang as well. He recommended starting her on statin therapy along with daily dose of aspirin. Prescriptions were pro vided, but she was cleared otherwise for discharge. She is hemodynamically stable, is awake, alert, oriented x3, and eager to go home. She was seen and examined prior to discharge. PHYSICAL EXAMINATION: VITAL SIGNS: This morning, temperature 98.2, pulse of 87, respirations 16, saturating 97% on room ai r, blood pressure 123/85. GENERAL: No acute distress, awake, alert, oriented x3. CHEST: Clear to auscultation bilaterally. HEART: Rate and rhythm is regular. LABORATORY EXAMINATION: Repeat troponin 0.070, potassium is 3.2, which was replaced prior to dischar ge. Discharge plan was discussed with the patient who verbalized understanding. She is instructed to fol low up with Dr. Chang, 3-4 weeks established care with Dr. Pantoja, as she expressed desire of. All the questions were answered and prescriptions were provided.
--- NOTE | 2018-05-07 11:48 | EKG ---
Test Reason : CP Blood Pressure : / mmHG Vent. Rate : 074 BPM Atrial Rate : 074 BPM P-R Int : 162 ms QRS Dur : 086 ms QT Int : 422 ms P-R-T Axes : 040 008 076 degrees QTc Int : 468 ms Normal sinus rhythm T wave abnormality, consider anterior ischemia Prolonged QT Abnormal ECG Biphasic T waves V1 - V3, possible Wellens Syndrome Confirmed by LEAH CHARLTON DO ([id number]), scientific editor MARIA DEL CARMEN BANG ([id number]) on 05/07/2018 11:47:48 AM Referred By: S Confirmed By:LEAH CHARLTON DO
== END 2018-05-04 12:33 | disposition home or self-care (01) ==
LOC: ERS 10:57 → 2SW 14:09
PROVIDERS: ADMIT Internal Medicine; ATTEND Internal Medicine
DX: I25.10 Atherosclerotic heart disease of native coronary artery without angina pectoris (principal); I10 Essential (primary) hypertension; E78.5 Hyperlipidemia, unspecified; E11.9 Type 2 diabetes mellitus without complications; F41.8 Other specified anxiety disorders; F17.200 Nicotine dependence, unspecified, uncomplicated; Z88.0 Allergy status to penicillin; Z79.82 Long term (current) use of aspirin; Z79.4 Long term (current) use of insulin; Z79.899 Other long term (current) drug therapy
CPT/HCPCS: 36415; 36416; 71045; 80048; 80053; 82553; 83036; 83690; 83735; 84484; 84703; 85025; 90471; 90732; 93005; 93458; 96372; 99152; A4216; C1769; G0009; G0378; J1644; J1650; J1815; J2001; J2250; J3010

== ENCOUNTER 2019-01-16 10:59 | Emergency (ER) | payer SELFPAY | END 2019-01-16 11:15 | disposition left against medical advice (07) | LOC: ERS 10:59 | DX: Z53.21 Procedure and treatment not carried out due to patient leaving prior to being seen by health care provider (principal) ==

== ENCOUNTER 2019-11-20 14:11 | Outpatient (CLI) | payer OTHER ==
--- NOTE | 2019-11-20 15:09 | ULT ---
EXAM: 1. OB ultrasound 2. Umbilical artery ultrasound COMPARISON: None HISTORY: female. Evaluate size, dates, and anatomy. TECHNIQUE: Multiplanar grayscale and color Doppler images were obtained in a transabdominal ult rasound. FINDINGS: Estimated weight is 1557 g. Average age of the fetus based off today's examination is 31 weeks 0 days. BPD 7.86 cm -- 31 weeks 4 days HC 28.99 cm -- 32 weeks 0 days AC 25.53 cm -- 29 weeks 5 days FL 5.86 cm -- 30 weeks 5 days The placenta is posterior in location without focal abnormality. Amniotic fluid volume is subjectivel y within normal limits.. The cervix is normal in length. There is no evidence of placenta previa. Interrogation of the umbilical artery shows maintenance of diastolic flow. Normal systolic to diastol ic ratios are seen within the umbilical artery. IMPRESSION: 1. Single live intrauterine with estimated age of 31 weeks 0 days. 2. Unremarkable umbilical artery ultrasound
== END 2019-11-20 14:12 | disposition home or self-care (01) ==
LOC: BICULT 14:11
PROVIDERS: ATTEND Nurse Practitioner
DX: O09.893 Supervision of other high risk pregnancies, third trimester (principal); Z3A.31 31 weeks gestation of pregnancy
CPT/HCPCS: 76816; 93975

== ENCOUNTER 2019-12-08 10:01 | Inpatient (IN) | payer OTHER ==
[2019-12-08 10:23] VITALS: BMI 27.4
[2019-12-08] MEDS ORDERED: hydrALAZINE 20 MG/ML VIAL ONE (10:26)
[2019-12-08] MEDS ORDERED: hydrALAZINE 20 MG/ML VIAL SLOW IVP SCH (11:00)
[2019-12-08 11:49] LABS: Cocaine Metabolite Screen Detected (NotDetected); Medtox Reader # READER 1; Phencyclidine (PCP) Not Detected (NotDetected); THC/Cannabinoid Screen Detected (NotDetected)
[2019-12-08 11:50] LABS: Amphetamine Not Detected (NotDetected); Barbiturates Screen Not Detected (NotDetected); Benzodiazepine Screen Not Detected (NotDetected); Medtox Control Line Valid? VALID (VALID); Methadone Not Detected (NotDetected); Methamphetamine Not Detected (NotDetected); Opiate Screen Not Detected (NotDetected); Oxycodone Screen Not Detected (NotDetected); Tricyclic Screen Not Detected (NotDetected)
[2019-12-08] MEDS ORDERED: hydrALAZINE 20 MG/ML VIAL SLOW IVP PRN ×2 (11:51→12:13)
[2019-12-08] MEDS ORDERED: Labetalol HCl 100 MG/20 ML VIAL ONE (11:55)
[2019-12-08] MEDS ORDERED: Metoclopramide HCl 10 MG/2 ML VIAL ONE (12:06)
[2019-12-08] MEDS ORDERED: Ondansetron PF 4 MG/2 ML Vial ONE (12:06)
[2019-12-08] MEDS ORDERED: Ketorolac Tromethamine 30 MG/ML VIAL ONE (12:06)
[2019-12-08] MEDS ORDERED: EPHEDRINE 25 MG/5 ML SYRINGE ONE ×2 (12:06→14:34)
[2019-12-08] MEDS ORDERED: PHENYLEPHRINE-NS 100 MCG/ML 10 ML SYRINGE ONE ×2 (12:06→14:32)
[2019-12-08] MEDS ORDERED: Promethazine HCl 25 MG/ML VIAL IM PRN ×2 (12:13→16:14)
[2019-12-08] MEDS ORDERED: Ondansetron PF 4 MG/2 ML Vial IVP PRN ×3 (12:13→18:27)
[2019-12-08] MEDS ORDERED: Lactated Ringer's 1,000 ML IV SCH (12:13)
[2019-12-08] MEDS ORDERED: CEFAZOLIN 2 GM in Premix Bag 1 BAG IVPB SCH (12:15)
[2019-12-08] MEDS ORDERED: Bicitra 30 ML UDCUP PO SCH (12:15)
[2019-12-08] MEDS ORDERED: Labetalol HCl 100 MG/20 ML VIAL SLOW IVP SCH (12:15)
[2019-12-08] MEDS ORDERED: Magnesium Sulfate 20 gm/500 ml 20 GM/500 ML BAG ONE ×2 (12:25→20:59)
[2019-12-08 12:59] LABS: Hemoglobin 10.7 g/dL (12.0-16.0); Mean Corpuscular HGB CONC 37.2 g/dL (32.0-36.0); Mean Corpuscular Hemoglobin 28.7 pg (27.0-31.0); Mean Corpuscular Volume 77.2 fL (78.0-98.0); Mean Platelet Volume 8.9 fL (7.4-10.4); Platelet Count 189 thou/uL (130-400); RBC Distribution Width 11.2 % (11.5-14.5); Red Blood Cell (RBC) Count 3.73 mill/uL (4.20-5.40); White Blood Cell (WBC) Count 8.5 thou/uL (4.8-10.8)
[2019-12-08 13:03] LABS: Bacteria/HPF 2+ HPF (None Seen); Bilirubin Negative (Negative); Blood, Urine Trace (Negative); Clarity Turbid (Clear); Glucose, Urine (Dipstick) Greater than 1000 mg/dL (Negative); Leukocyte 500 Leu/uL (Negative); Nitrite Negative (Negative); Protein, Urine (Dipstick) 300 mg/dL (Neg-Trace); Urobilinogen 3 mg/dL (Less than 2); WBC/HPF 21-50 HPF (0-3)
[2019-12-08 13:05] LABS: ALT (SGPT) 12 U/L (8-55); AST (SGOT) 15 U/L (5-34); Albumin 3.1 g/dL (3.5-5.0); Alkaline Phosphatase 643 U/L (40-110); Anion Gap 15 mmol/L (10-20); BUN (Urea Nitrogen) 10 mg/dL (7.0-18.7); Bilirubin, Total 0.2 mg/dL (0.2-1.2); Calc. Creatinine Clearance 116 mL/min (70-130); Calcium 8.6 mg/dL (7.8-10.44); Carbon Dioxide 21 mmol/L (22-29); Chloride 102 mmol/L (98-107); Estimated GFR-MDRD Greater than 90; Globulin 3.5 g/dL (2.4-3.5); Glucose 299 mg/dL (70-105); Potassium 3.4 mmol/L (3.5-5.1); Protein, Total 6.6 g/dL (6.0-8.3); Sodium 135 mmol/L (136-145)
[2019-12-08] MEDS ORDERED: Famotidine/PF 20 mg/2ml Vial ONE (13:10)
[2019-12-08 13:24] LABS: HBSAg Index 0.25 S/CO (0-0.99); Hep B Surf Ag Non-Reactive S/CO (NonReactive)
--- NOTE | 2019-12-08 13:36 | ULT ---
ULTRASOUND BIOPHYSICAL PROFILE: HISTORY: Chronic hypertension and diabetes. FINDINGS: A single live intrauterine gestation is seen with a heart rate of 136 b.p.m. ELMER measures 13 c m. Umbilical artery Doppler measurements are as follows: Placenta: Peak systolic velocity is 63 cm/s and S/D ratio is 2.22. Mid: Peak systolic velocity is 97 cm/s and S/D ratio is 4.22. Cord insertion: Peak systolic velocity is 129 cm/s and S/D ratio is 3.42. OB biophysical profile: tone: 2. breathin. movements: 2. Amniotic fluid: 2. IMPRESSION: Ultrasound biophysical score is 8 out of 8. POS: OFF
[2019-12-08] MEDS ORDERED: Calcium Gluc 4.6 MEQ/10 ML (100 MG/ML) SLOW IVP PRN (13:37)
[2019-12-08 13:45] LABS: Syphilis Antibody Nonreactive (Nonreactive); Syphilis Antibody Index 0.04 S/CO (<1.00 Non-Reactive)
[2019-12-08] MEDS ORDERED: Magnesium Sulfate 20 GM/WATER 500 ML BAG IVPB SCH (13:45)
[2019-12-08] MEDS ORDERED: Insulin Regular 300 UNITS/3 ML VIAL ONE (13:56)
[2019-12-08] MEDS ORDERED: HumaLOG 300 UNITS/3 ML VIAL SC SCH (14:00)
[2019-12-08] MEDS ORDERED: MORPHINE 5 MG/10 ML PF VIAL ONE (14:10)
[2019-12-08] MEDS ORDERED: Oxytocin 10 UNITS/ML VIAL ONE ×3 (14:10→14:49)
[2019-12-08] MEDS ORDERED: Azithromycin 1,000 MG in Sodium Chloride 0.9% 500 ML IVPB SCH (14:15)
[2019-12-08] MEDS: Magnesium Sulfate 20 gm/500 ml 20 GM/500 ML BAG IVPB SCH ×2 (14:15→21:00)
[2019-12-08] MEDS ORDERED: Nitroglycerin 2% Ointment 1 INCH/1 GM Packet ONE (14:53)
[2019-12-08] MEDS ORDERED: Fentanyl 100 MCG/2 ML VIAL ONE (15:13)
--- NOTE | 2019-12-08 15:33 | PDOC.OPDEL ---
OB Operative/Delivery Note Delivery Dr/Surgeon: Dr. Wisdom Assist: Dr. Macias Pre-Delivery Diagnosis: scheduled section Procedure/Post Delivery Dx: repeat low transverse CS Weeks gestation: 35 (35w6d) Anesthesia: spinal - Findings A Sex: male - 1 min: 8 - 5 min: 9 - Additional Findings/Plan Placenta delivered: manual removal findings: low transverse hysterotomy without extension Estimated blood loss: 700mL Compilations/Other Findings: Preoperative Diagnosis: 1) intrauterine 2)Previous x2 3)Chronic HTN with superimposed pre-eclampsia with severe features 4)Pregestational Diabetes 5)Polysubstance Abuse Postoperative Diagnosis: 1) intrauterine , delivered 2)Previous x2 3)Chronic HTN with superimposed pre-eclampsia with severe features 4)Pregestational Diabetes 5)Polysubstance Abuse 6)Uterine Adhesion Anesthesia: spinal Indications: The patient is a 34 year old female at 35.6 weeks gestation who presented for elevated blood pressures and was found to have superimposed severe pre-eclampsia on chronic HTN so the decision was made for a repeat scheduled . Procedure in Detail: After risks, benefits, and alternatives were explained to the patient, she gave informed consent. Pre-operative antibiotics included Cefazolin 2 gram IV and Azithromycin 1000mg IV. The patient was taken to the operating room and spinal anesthesia was initiated. She was placed in the supine position with a left tilt and prepped and draped in usual sterile fashion. A Pfannenstiel incision was made with a scalpel and carried down to the level of the fascia which was sharply nicked. The fascial cut was extended bilaterally with Whiteside scissors. The inferior and superior edges of the cut fascial edges were elevated with Rajesh clamps and the underlying rectus muscles were sharply and bluntly dissected free. The recti were divided digitally and retracted manually. The peritoneum was entered bluntly and retracted manually. The rectus muscles were extended laterally with bovie. Bladder blade was placed. A low transverse score was made with the scalpel and the uterus was entered in the midline bluntly. Clear fluid was seen. The hysterotomy was extended manually. The was noted to be vertex and was easily delivered by fundal pressure. Mouth and nares were bulb suctioned and was dried and stimulated. Cord clamped and cut and grossly normal male infant was handed to waiting nurse. Cord blood was obtained. Placenta was manually extracted, found to be intact with 3 vessel cord and sent to lab for pathology. The uterus was externalized and the endometrium was curetted with a dry lap. A uterine adhesion on the maternal left was taken down with the bovie. The bladder blade was replaced and the uterus was closed with a running locking #1 Monocryl suture. Following this hemostasis was noted. The abdomen was irrigated with saline and suctioned free of clots. Seprafilm was placed over the anterior aspect of the uterus. The uterus was internalized and the hysterotomy was again noted to be hemostatic. The rectus muscles were repaired with figure of eight 0-vicryl suture. The rectus muscles were examined and a few bleeding areas were cauterized with the bovie. The fascia was closed with a running non-locking 0-PDS suture. The subcutaneous tissue was irrigated and there were a few bleeders that were cauterized with the bovie. The subcutaneous layer was closed with simple interrupted 3-0 vicryl suture. The skin was approximated with hossein and a pressure dressing was placed. All counts were correct. The patient tolerated the procedure well and was taken to the recovery room in stable condition. Time of Delivery: 1447 on 12/08/19 Estimated Blood Loss: 700 ml Complications: None Specimens: Cord blood sent to lab for blood type, placenta sent for pathology. Findings: Grossly normal male infant with apgars of 8&9 at 1 and 5 minutes respectively. Grossly normal placenta with 3 vessel cord sent to lab for pathology. Drains: Kim to gravity draining clear urine Post delivery plan: recovery in LICU
[2019-12-08] MEDS ORDERED: Promethazine HCl 25 MG SUPP PR PRN (16:14)
[2019-12-08] MEDS ORDERED: Ondansetron HCl/PF 4 MG/2 ML Vial IVP PRN (16:14)
[2019-12-08] MEDS ORDERED: HYDROmorphone 2 MG/ML VIAL SLOW IVP PRN (16:14)
[2019-12-08] MEDS ORDERED: diphenhydrAMINE 50 MG/ML VIAL IVP PRN (16:14)
[2019-12-08] MEDS ORDERED: Naloxone HCl 0.4 mg/ml Vial IV PRN (16:14)
[2019-12-08] MEDS ORDERED: Naloxone HCl 0.4 mg/ml Vial IVP PRN (16:14)
[2019-12-08] MEDS ORDERED: L&D-Morphine 4 MG/ML VIAL SLOW IVP PRN (16:14)
[2019-12-08] MEDS ORDERED: Communication Order-Pharmacy FS SCH (16:15)
[2019-12-08] MEDS ORDERED: Naloxone HCl 0.4 mg/ml Vial ONE (16:24)
[2019-12-08] MEDS ORDERED: Meperidine HCl/PF 25 MG/ML VIAL ONE ×2 (16:24→17:10)
[2019-12-08] MEDS ORDERED: diphenhydrAMINE 50 MG/ML VIAL ONE (16:24)
[2019-12-08] MEDS: Meperidine HCl/PF 25 MG/ML VIAL SLOW IVP PRN ×2 (16:27→17:11)
[2019-12-08] MEDS: Naloxone HCl 0.4 mg/ml Vial IVP PRN ×2 (16:27→20:37)
--- NOTE | 2019-12-08 16:50 | EKG ---
Test Reason : Blood Pressure : / mmHG Vent. Rate : 098 BPM Atrial Rate : 098 BPM P-R Int : 162 ms QRS Dur : 080 ms QT Int : 402 ms P-R-T Axes : 075 037 092 degrees QTc Int : 513 ms Normal sinus rhythm Nonspecific ST and T wave abnormality Prolonged QT Abnormal ECG When compared with ECG of 03-MAY-2018 11:05, Nonspecific T wave abnormality no longer evident in Inferior leads T wave inversion no longer evident in Anterior leads Confirmed by DR. Fani BETANCUR ([id number]) on 12/08/2019 4:50:38 PM Referred By: ANGELES Confirmed By:DR. Fani BETANCUR
[2019-12-08] MEDS ORDERED: Calcium Gluconate 4.6 MEQ in Sodium Chloride 0.9% 100 ML IVPB PRN (18:27)
[2019-12-08] MEDS ORDERED: Bisacodyl 10 MG SUPP PR PRN (18:27)
[2019-12-08] MEDS ORDERED: NS / Oxytocin 40 units/1000ml 1,000 ML IV SCH (18:27)
[2019-12-08] MEDS: hydrALAZINE 20 MG/ML VIAL SLOW IVP PRN ×2 (19:30→21:02)
[2019-12-08] MEDS: Ketorolac Tromethamine 30 MG/ML VIAL IVP SCH (19:43)
[2019-12-08] MEDS: Insulin Glargine 10 UNITS in Pre-Filled Syringe 1 EACH SC SCH (20:39)
[2019-12-08] MEDS: cloNIDine 0.1 MG TAB PO PRN (20:40)
[2019-12-08] MEDS ORDERED: Ketorolac Tromethamine 30 MG/ML VIAL IVP PRN (23:00)
[2019-12-09] MEDS: Ferrous Sulfate 325 MG TAB PO SCH ×3 (00:07→20:18)
[2019-12-09] MEDS: Docusate Calcium (SURFAK) 240 MG CAP PO SCH ×3 (00:07→20:18)
[2019-12-09] MEDS: Ketorolac Tromethamine 30 MG/ML VIAL IVP SCH ×2 (01:58→08:12)
[2019-12-09] MEDS: Naloxone HCl 0.4 mg/ml Vial IVP PRN (02:11)
[2019-12-09] MEDS: hydrALAZINE 20 MG/ML VIAL SLOW IVP PRN ×2 (02:16→14:08)
[2019-12-09] MEDS ORDERED: Meperidine HCl/PF 25 MG/ML VIAL IM PRN (04:15)
[2019-12-09] MEDS ORDERED: HYDROcodone/Acetaminophen 5/325 mg Tablet PO PRN (04:15)
[2019-12-09] MEDS ORDERED: Magnesium Sulfate 20 gm/500 ml 20 GM/500 ML BAG ONE (06:45)
[2019-12-09 08:01] LABS: Hemoglobin 9.4 g/dL (12.0-16.0); Mean Corpuscular HGB CONC 36.6 g/dL (32.0-36.0); Mean Corpuscular Hemoglobin 28.4 pg (27.0-31.0); Mean Corpuscular Volume 77.5 fL (78.0-98.0); Mean Platelet Volume 7.6 fL (7.4-10.4); Platelet Count 174 thou/uL (130-400); RBC Distribution Width 11.1 % (11.5-14.5); Red Blood Cell (RBC) Count 3.31 mill/uL (4.20-5.40); White Blood Cell (WBC) Count 12.1 thou/uL (4.8-10.8)
[2019-12-09 08:05] LABS: Hemoglobin A1c 5.5 % (4.0-6.0)
[2019-12-09] MEDS: Magnesium Sulfate 20 gm/500 ml 20 GM/500 ML BAG IVPB SCH (08:11)
[2019-12-09] MEDS: Prenatal Vitamin 1 TAB PO SCH (08:13)
[2019-12-09] MEDS: diphenhydrAMINE 25 MG CAP PO PRN ×2 (08:17→18:59)
[2019-12-09] MEDS: cloNIDine 0.1 MG TAB PO PRN ×2 (08:21→13:23)
[2019-12-09] MEDS: NIFEdipine XL 60 MG TAB PO SCH (08:51)
[2019-12-09] MEDS ORDERED: Adacel (T-DAP) 0.5 ML SYRINGE IM ONE (09:00)
[2019-12-09] MEDS ORDERED: hydrALAZINE 20 MG/ML VIAL SLOW IVP SCH (14:15)
[2019-12-09] MEDS: Ibuprofen 800 MG TAB PO SCH ×2 (15:15→20:59)
[2019-12-09] MEDS: HYDROcodone/Acetaminophen 5/325 mg Tablet PO PRN ×2 (15:24→20:18)
[2019-12-09] MEDS: metFORMIN 500 MG TAB PO SCH (16:55)
[2019-12-09] MEDS ORDERED: HumaLOG 300 UNITS/3 ML VIAL SC SCH (19:00)
[2019-12-09] MEDS: Simethicone Chewable 80 MG TAB PO PRN (20:18)
[2019-12-09] MEDS: Insulin Glargine 10 UNITS in Pre-Filled Syringe 1 EACH SC SCH (21:07)
[2019-12-09] MEDS ORDERED: Ibuprofen 800 MG TAB PO SCH (22:00)
[2019-12-10] MEDS: HumaLOG 300 UNITS/3 ML VIAL SC SCH ×2 (00:41→16:27)
[2019-12-10 01:51] LABS: Bilirubin Negative (Negative); Blood, Urine Trace (Negative); Clarity Turbid (Clear); Glucose, Urine (Dipstick) Normal (Negative); Leukocyte 500 Leu/uL (Negative); Nitrite Negative (Negative); Protein, Urine (Dipstick) 20 mg/dL (Neg-Trace); Urobilinogen Normal mg/dL (Less than 2); WBC/HPF Greater than 50 HPF (0-3)
[2019-12-10 01:54] LABS: Bacteria/HPF 1+ HPF (None Seen)
[2019-12-10] MEDS: cloNIDine 0.1 MG TAB PO PRN ×3 (01:59→20:43)
[2019-12-10 02:28] LABS: #Eosinphils 0.1 thou/uL (0.0-0.7); #Lymphocytes 1.8 thou/uL (1.20-3.40); #Monocytes 0.3 thou/uL (0.11-0.59); #Neutrophils 7.4 thou/uL (1.40-6.50); %Basophils 0.3 % (0.0-1.0); %Eosinophils 0.5 % (0.0-10.0); %Lymphocytes 18.8 % (21.0-51.0); %Neutrophils 77.3 % (42.0-75.0); Hemoglobin 9.2 g/dL (12.0-16.0); Mean Corpuscular HGB CONC 37.1 g/dL (32.0-36.0); Mean Corpuscular Hemoglobin 28.9 pg (27.0-31.0); Mean Corpuscular Volume 77.9 fL (78.0-98.0); Mean Platelet Volume 8.1 fL (7.4-10.4); Platelet Count 197 thou/uL (130-400); RBC Distribution Width 11.2 % (11.5-14.5); Red Blood Cell (RBC) Count 3.18 mill/uL (4.20-5.40); White Blood Cell (WBC) Count 9.5 thou/uL (4.8-10.8)
[2019-12-10] MEDS: HYDROcodone/Acetaminophen 5/325 mg Tablet PO PRN ×3 (02:45→22:20)
[2019-12-10] MEDS: Simethicone Chewable 80 MG TAB PO PRN ×2 (02:45→12:10)
[2019-12-10] MEDS: Ibuprofen 800 MG TAB PO SCH ×3 (03:57→21:38)
[2019-12-10 06:12] LABS: Lactic Acid 0.6 mmol/L (0.5-2.2)
[2019-12-10] MEDS: Docusate Calcium (SURFAK) 240 MG CAP PO SCH ×2 (08:28→20:46)
[2019-12-10] MEDS: Ferrous Sulfate 325 MG TAB PO SCH ×2 (08:28→20:44)
[2019-12-10] MEDS: Prenatal Vitamin 1 TAB PO SCH (08:28)
[2019-12-10] MEDS: NIFEdipine XL 60 MG TAB PO SCH (08:29)
[2019-12-10] MEDS: metFORMIN 500 MG TAB PO SCH ×2 (08:29→16:53)
[2019-12-10] MEDS: cefTRIAXone\\ROCEPHIN 2 GM in Sodium Chloride 0.9% 100 ML IVPB SCH (10:10)
[2019-12-10] MEDS ORDERED: HumaLOG 300 UNITS/3 ML VIAL SC SCH (14:30)
[2019-12-10] MEDS: Insulin Glargine 10 UNITS in Pre-Filled Syringe 1 EACH SC SCH (20:46)
[2019-12-11] MEDS: cloNIDine 0.1 MG TAB PO PRN (00:54)
[2019-12-11] MEDS: hydrALAZINE 20 MG/ML VIAL SLOW IVP PRN ×3 (04:55→11:35)
[2019-12-11] MEDS: Ibuprofen 800 MG TAB PO SCH ×3 (05:39→21:39)
[2019-12-11] MEDS: Ferrous Sulfate 325 MG TAB PO SCH ×2 (08:59→21:38)
[2019-12-11] MEDS: Docusate Calcium (SURFAK) 240 MG CAP PO SCH ×2 (08:59→21:39)
[2019-12-11] MEDS: Prenatal Vitamin 1 TAB PO SCH (08:59)
[2019-12-11] MEDS: NIFEdipine XL 60 MG TAB PO SCH (09:52)
[2019-12-11] MEDS: metFORMIN 500 MG TAB PO SCH ×2 (09:53→17:38)
[2019-12-11] MEDS: HumaLOG 300 UNITS/3 ML VIAL SC SCH ×3 (09:54→16:44)
[2019-12-11] MEDS: cefTRIAXone\\ROCEPHIN 2 GM in Sodium Chloride 0.9% 100 ML IVPB SCH (10:05)
[2019-12-11] MEDS ORDERED: NIFEdipine XL 30 MG TAB PO SCH (11:45)
[2019-12-11 11:59] VITALS: TEMP 97.9
[2019-12-11] MEDS: Labetalol HCl 100 MG/20 ML VIAL SLOW IVP SCH ×2 (13:50→14:00)
[2019-12-11] MEDS ORDERED: NIFEdipine XL 90 MG TAB PO SCH (14:15)
[2019-12-11] MEDS ORDERED: Losartan/Hydrochlorothiazide 100 mg/25 mg Tablet PO SCH (14:15)
[2019-12-11] MEDS: HYDROcodone/Acetaminophen 5/325 mg Tablet PO PRN (16:16)
[2019-12-11 20:13] LABS: Free T4 (Free Thyroxine) 0.87 ng/dL (0.70-1.48); Thyroid Stimulating Hormone 2.496 uIU/mL (0.35-4.94)
[2019-12-11] MEDS ORDERED: Labetalol 100 MG TAB PO SCH (21:00)
[2019-12-11] MEDS: Insulin Glargine 10 UNITS in Pre-Filled Syringe 1 EACH SC SCH (21:36)
[2019-12-11] MEDS: Labetalol 100 MG TAB PO SCH (21:38)
[2019-12-12] MEDS: hydrALAZINE 20 MG/ML VIAL SLOW IVP PRN (00:40)
[2019-12-12] MEDS ORDERED: Labetalol 100 MG TAB PO SCH ×2 (01:30→09:00)
[2019-12-12] MEDS ORDERED: Labetalol HCl 100 MG/20 ML VIAL SLOW IVP SCH ×2 (01:30→07:00)
[2019-12-12] MEDS: Ibuprofen 800 MG TAB PO SCH (05:52)
[2019-12-12] MEDS: Prenatal Vitamin 1 TAB PO SCH (07:59)
[2019-12-12] MEDS: Ferrous Sulfate 325 MG TAB PO SCH (07:59)
[2019-12-12] MEDS: Labetalol 100 MG TAB PO SCH (08:00)
[2019-12-12] MEDS ORDERED: Insulin Regular 300 UNITS/3 ML VIAL ONE (08:01)
[2019-12-12] MEDS: HumaLOG 300 UNITS/3 ML VIAL SC SCH (08:02)
[2019-12-12 08:33] VITALS: BP 157/83
[2019-12-12] MEDS ORDERED: Losartan/Hydrochlorothiazide 100 mg/25 mg Tablet PO SCH (09:00)
[2019-12-12] MEDS ORDERED: NIFEdipine XL 90 MG TAB PO SCH (09:00)
[2019-12-12] MEDS: metFORMIN 500 MG TAB PO SCH (09:10)
[2019-12-12] MEDS: cefTRIAXone\\ROCEPHIN 2 GM in Sodium Chloride 0.9% 100 ML IVPB SCH (10:35)
[2019-12-12] MEDS: Docusate Calcium (SURFAK) 240 MG CAP PO SCH (10:41)
--- NOTE | 2019-12-14 20:30 | PQF ---
[employer] Winform Viewer SHAVONSAMARIA TORREYSESAR SAHA MD [id number] CLINICAL DOCUMENTATION CLARIFICATION FORM: POST DISCHARGE Addendum to original discharge summary date: ____ Late entry note date: __ DATE: 12/14/19 ATTN: Sesar Wisdom Please exercise your independent, professional judgment in responding to the clarification form. Clinical indicators are provided on the bottom of this form for your review Please check appropriate box(s): [ ] Acute blood loss anemia [ ] Post-op anemia related to acute blood loss [ ] Iron deficiency anemia [ ] Anemia unspecified [ ] Other diagnosis [ ] Unable to determine In addition, please specify: Present on Admission (POA): [ ] Yes [ ] No [ ] Unable to determine For continuity of documentation, please document condition throughout progress notes and discharge summary. Thank You. CLINICAL INDICATORS - SIGNS / SYMPTOMS / LABS LABS , 12/09- Hgb: 9.4, 9.2 LABS , 12/09- Hct: 25.6, 24.8 OB Operative & Delivery note 12/08 pg2-s/p repeat low transverse CS OB Operative & Delivery note 12/08 pg2-Estimated blood loss: 700 ml VITAL SIGNS 12/11/19- PULSE: 122, 126 RISK FACTORS Intrauterine - OP report Chronic HTN with severe preeclampsia- OP report pg.1 Polysubstance abuse- OP report pg.1 Previous CS- OP report pg.1 TREATMENTS: H and H Monitoring- Laboratory IV Fluids- MAR Ferrous sulfate 325 mg -MAR 12/08-12/11 (This form is maintained as a part of the permanent medical record) 2014 [employer]. All Rights Reserved [email or web address]
== END 2019-12-12 13:35 | disposition left against medical advice (07) | DRG 788 ==
LOC: L&D/OP 10:01 → L&D 14:07 → 3SW 12-09 15:17 → L&D 12-11 13:46
PROVIDERS: ADMIT Family Medicine; ATTEND Family Medicine
PROC: 10D00Z1 Extraction of Products of Conception, Low, Open Approach (ICD-10-PCS; principal; 2019-12-08)
DX: O11.4 Pre-existing hypertension with pre-eclampsia, complicating childbirth (principal); O10.02 Pre-existing essential hypertension complicating childbirth; O24.12 Pre-existing type 2 diabetes mellitus, in childbirth; O75.3 Other infection during labor; O99.324 Drug use complicating childbirth; O34.211 Maternal care for low transverse scar from previous cesarean delivery; O99.334 Smoking (tobacco) complicating childbirth; E11.65 Type 2 diabetes mellitus with hyperglycemia; F17.210 Nicotine dependence, cigarettes, uncomplicated; F14.10 Cocaine abuse, uncomplicated; F12.10 Cannabis abuse, uncomplicated; Z3A.35 35 weeks gestation of pregnancy; Z37.0 Single live birth; Z79.4 Long term (current) use of insulin; Z88.1 Allergy status to other antibiotic agents
CPT/HCPCS: 36415; 36416; 51702; 59025; 76819; 80053; 80306; 81001; 82570; 83036; 83605; 83735; 84439; 84443; 85025; 85027; 86780; 86850; 86900; 86901; 87040; 87086; 87340; 88307; 93005; 93010; 93975; 99285; J0360; J0456; J0690; J0696; J1200; J1815; J1885; J2175; J2274; J2310; J2405; J2590; J2765; J3010; J3475; J3490; J7050; Q0163; S0028

== ENCOUNTER 2021-01-10 13:38 | Observation (INO) | payer OTHER ==
[2021-01-10] MEDS ORDERED: Acetaminophen 500 MG TAB ONE (14:55)
[2021-01-10] MEDS ORDERED: Ondansetron ODT 4 MG TAB ONE (14:56)
[2021-01-10] MEDS ORDERED: Metoclopramide HCl 10 MG/2 ML VIAL ONE (14:56)
[2021-01-10] MEDS ORDERED: Ketorolac Tromethamine 30 MG/ML VIAL ONE (14:56)
[2021-01-10] MEDS ORDERED: Ondansetron PF 4 MG/2 ML Vial ONE (14:56)
[2021-01-10] MEDS ORDERED: diphenhydrAMINE 50 MG/ML VIAL ONE (14:56)
[2021-01-10 15:30] LABS: Anion Gap 9 mmol/L (10-20); BUN (Urea Nitrogen) 7 mg/dL (7.0-18.7); Calc. Creatinine Clearance 0 mL/min (70-130); Calcium 8.6 mg/dL (7.8-10.44); Carbon Dioxide 28 mmol/L (22-29); Chloride 102 mmol/L (98-107); Glucose 221 mg/dL (70-105); Potassium 3.4 mmol/L (3.5-5.1); Sodium 136 mmol/L (136-145)
[2021-01-10] MEDS ORDERED: Aspirin Chewable 81 MG TAB ONE (15:45)
[2021-01-10 15:52] LABS: BHCG - Serum Negative (NEGATIVE); Pregs Control Background? CLEAR/WHITE (CLR/WHITE); Pregs Control Bar Appear? YES (CONTROL BAR)
[2021-01-10 15:53] LABS: #Eosinphils 0.3 thou/uL (0.0-0.7); #Lymphocytes 2.9 thou/uL (1.20-3.40); #Monocytes 0.3 thou/uL (0.11-0.59); #Neutrophils 4.2 thou/uL (1.40-6.50); %Basophils 0.3 % (0.0-1.0); %Eosinophils 4.1 % (0.0-10.0); %Lymphocytes 37.7 % (21.0-51.0); %Monocytes 3.9 % (0.0-10.0); Hemoglobin 12.8 g/dL (12.0-16.0); Mean Corpuscular Hemoglobin 27.4 pg (27.0-31.0); Mean Corpuscular Volume 76.2 fL (78.0-98.0); Mean Platelet Volume 7.8 fL (7.4-10.4); Platelet Count 216 thou/uL (130-400); Red Blood Cell (RBC) Count 4.65 mill/uL (4.20-5.40); White Blood Cell (WBC) Count 7.7 thou/uL (4.8-10.8)
[2021-01-10 16:24] LABS: Prothrombin Time 12.9 sec (12.0-14.7)
[2021-01-10 16:25] LABS: PTT 25.5 sec (22.9-36.1)
[2021-01-10] MEDS ORDERED: Dextrose 5% in Water 1,000 ML IV PRN (16:44)
[2021-01-10] MEDS ORDERED: Acetaminophen 325 MG TAB PO PRN (16:44)
[2021-01-10] MEDS ORDERED: Dextrose 50% Abboject 50 ML SYRINGE SLOW IVP PRN (16:44)
[2021-01-10] MEDS ORDERED: HumaLOG 300 UNITS/3 ML VIAL SC PRN ×2 (16:44)
[2021-01-10] MEDS ORDERED: Potassium Chloride 20 MEQ TAB PO SCH (17:00)
[2021-01-10] MEDS ORDERED: hydrALAZINE 20 MG/ML VIAL SLOW IVP PRN (17:07)
[2021-01-10] MEDS ORDERED: Labetalol HCl 100 MG/20 ML VIAL SLOW IVP PRN (17:08)
[2021-01-10 17:18] LABS: Hemoglobin A1c 8.4 % (4.0-6.0)
[2021-01-10 17:25] LABS: Iron 56 ug/dL (50-170); Iron Binding Capacity, Total 263 mcg/dL (265-497)
[2021-01-10 17:40] LABS: Thyroid Stimulating Hormone 0.7409 uIU/mL (0.35-4.94)
[2021-01-10 18:48] LABS: Hemoglobin 11.6 g/dL (12.0-16.0); Mean Corpuscular Hemoglobin 26.6 pg (27.0-31.0); Mean Corpuscular Volume 76.1 fL (78.0-98.0); Mean Platelet Volume 7.5 fL (7.4-10.4); Platelet Count 212 thou/uL (130-400); RBC Distribution Width 11.7 % (11.5-14.5); Red Blood Cell (RBC) Count 4.37 mill/uL (4.20-5.40); White Blood Cell (WBC) Count 7.8 thou/uL (4.8-10.8)
[2021-01-10 19:08] LABS: Anisocytosis SLIGHT = 6-15 cells (100X) (0-5/hpf); Band 2 % (5-11); Eosinophils 3 % (0-10); Lymphocytes 43 % (21-51); MDiff Complete? YES; Microcytosis SLIGHT = 6-15 cells (100X) (0-5/hpf); Monocytes 3 % (0-10); Neutrophil 46 % (42-75); Platelet Morphology Comment Appears Adequate; Reactive Lymphocytes 3 % (0-10)
[2021-01-10 19:38] VITALS: BP 145/91; TEMP 97.8
[2021-01-10] MEDS ORDERED: Atorvastatin Calcium 40 MG TAB PO SCH (21:00)
[2021-01-11] MEDS ORDERED: metFORMIN 500 MG TAB PO SCH (08:00)
[2021-01-11] MEDS ORDERED: Enoxaparin Sodium 40 MG/0.4 ML SYRINGE SC SCH (09:00)
[2021-01-11] MEDS ORDERED: NIFEdipine XL 30 MG TAB PO SCH (09:00)
[2021-01-11] MEDS ORDERED: Lisinopril 10 MG TAB PO SCH (09:00)
[2021-01-11] MEDS ORDERED: Clopidogrel Bisulfate 75 MG TAB PO SCH (09:00)
[2021-01-11] MEDS ORDERED: Aspirin 81 mg Enteric Coated Tablet PO SCH (09:00)
[2021-01-11] MEDS ORDERED: Potassium Chloride 20 MEQ TAB PO SCH (17:00)
== END 2021-01-10 20:30 | disposition left against medical advice (07) ==
LOC: EDBD → ERS 13:38 → INTOOBSV 16:41 → 2SE 16:41
PROVIDERS: ADMIT Family Medicine; ATTEND Family Medicine
DX: I63.9 Cerebral infarction, unspecified (principal); G83.24 Monoplegia of upper limb affecting left nondominant side; R01.1 Cardiac murmur, unspecified; I10 Essential (primary) hypertension; E87.6 Hypokalemia; E11.9 Type 2 diabetes mellitus without complications; D50.9 Iron deficiency anemia, unspecified; F14.10 Cocaine abuse, uncomplicated; F12.10 Cannabis abuse, uncomplicated; F17.210 Nicotine dependence, cigarettes, uncomplicated; G43.909 Migraine, unspecified, not intractable, without status migrainosus; E66.9 Obesity, unspecified; Z53.29 Procedure and treatment not carried out because of patient's decision for other reasons; Z79.4 Long term (current) use of insulin; Z79.82 Long term (current) use of aspirin; Z79.899 Other long term (current) drug therapy; Z88.0 Allergy status to penicillin
CPT/HCPCS: 36415; 70450; 80048; 82607; 82728; 82746; 83036; 83540; 83550; 84443; 84703; 85025; 85060; 85610; 85730; 93005; 96365; 96375; J1200; J1885; J2405; J2765; Q0162

== ENCOUNTER 2023-11-07 15:11 | Emergency (ER) | payer MEDICAID, OTHER ==
[2023-11-07 15:45] LABS: #Monocytes 0.2 thou/uL (0.11-0.59); #Neutrophils 3.5 thou/uL (1.40-6.50); %Basophils 0.2 % (0.0-1.0); %Eosinophils 0.4 % (0.0-10.0); %Lymphocytes 29.1 % (21.0-51.0); %Monocytes 4.5 % (0.0-10.0); %Neutrophils 65.6 % (42.0-75.0); Hematocrit 40.8 % (36.0-47.0); Hemoglobin 14.5 g/dL (12.0-16.0); Mean Corpuscular HGB CONC 35.5 g/dL (32.0-36.0); Mean Corpuscular Hemoglobin 26.7 pg (27.0-31.0); Mean Corpuscular Volume 75.1 fl (78.0-98.0); Platelet Count 211 10x3/uL (130-400); Red Blood Cell (RBC) Count 5.43 mill/uL (4.20-5.40); White Blood Cell (WBC) Count 5.3 10x3/uL (4.8-10.8)
[2023-11-07 16:10] LABS: ALT (SGPT) 12 U/L (8-55); AST (SGOT) 13 U/L (5-34); Albumin 3.7 g/dL (3.5-5.0); Alkaline Phosphatase 58 U/L (40-110); Anion Gap 14 mmol/L (10-20); BUN (Urea Nitrogen) 14 mg/dL (7.0-18.7); Bilirubin, Total 0.6 mg/dL (0.2-1.2); Calc. Creatinine Clearance 0 mL/min (70-130); Calcium 8.9 mg/dL (7.8-10.44); Carbon Dioxide 25 mmol/L (22-29); Chloride 98 mmol/L (98-107); Estimated GFR 65; Globulin 4.1 g/dL (2.4-3.5); Glucose 264 mg/dL (70-105); Lipase 8 U/L (8-78); Potassium 3.3 mmol/L (3.5-5.1); Protein, Total 7.8 g/dL (6.0-8.3); Sodium 134 mmol/L (136-145)
[2023-11-07] MEDS ORDERED: Ondansetron PF 4 MG/2 ML Vial ONE (17:15)
[2023-11-07] MEDS ORDERED: Ketorolac Tromethamine 30 MG (1 mL) VIAL ONE (17:15)
[2023-11-07] MEDS ORDERED: Potassium Bicarbonate/Cit Ac 20 MEQ TAB ONE (17:15)
[2023-11-07 17:36] LABS: Bacteria/HPF None Seen HPF (None Seen); Bilirubin Negative (Negative); Blood, Urine 2+ (Negative); CAUTI Indications for Culture Pelvic or flank pain; Clarity Clear (Clear); Glucose, Urine (Dipstick) 70 mg/dL (Negative); Ketone, Urine Trace mg/dL (Negative); Leukocyte Negative Leu/uL (Negative); Nitrite Negative (Negative); Pregnancy Test - Urine (BHCG) Negative (Negative); Protein, Urine (Dipstick) 600 mg/dL (Neg-Trace); Specific Gravity, Urine 1.032 (1.002-1.036); Urobilinogen Normal mg/dL (Less than 2)
[2023-11-07 17:37] LABS: Pregu Control Background? CLEAR/WHITE (CLR/WHITE); Pregu Control Bar Appear? YES (CONTROL BAR); Specific Gravity 1.032 (1.002-1.036)
[2023-11-07 17:38] LABS: Urine Culture Reflex No No
[2023-11-07] MEDS ORDERED: Ondansetron ODT 4 MG TAB ONE (17:59)
== END 2023-11-07 18:05 | disposition home or self-care (01) ==
LOC: ERS 15:11
DX: R11.2 Nausea with vomiting, unspecified (principal); E11.9 Type 2 diabetes mellitus without complications; I10 Essential (primary) hypertension; F17.210 Nicotine dependence, cigarettes, uncomplicated; Z79.4 Long term (current) use of insulin; Z79.899 Other long term (current) drug therapy
CPT/HCPCS: 36415; 80053; 81001; 81025; 83690; 85025; 96361; 96374; J1885; J2405; Q0162

== ENCOUNTER 2023-11-08 16:08 | Emergency (ER) | payer OTHER | END 2023-11-08 18:44 | disposition home or self-care (01) | LOC: ERS 16:08 | DX: R11.2 Nausea with vomiting, unspecified (principal); F12.90 Cannabis use, unspecified, uncomplicated; I10 Essential (primary) hypertension; E11.9 Type 2 diabetes mellitus without complications | CPT/HCPCS: 96360; 96361 ==